=== PATIENT | female | born 1980 | race Caucasian/White ===

== ENCOUNTER → 2017-01-12 15:39 | Observation (INO) ==
[2017-01-12 13:14] LABS: Basophils % 0.1 %; Eosinophils % 0.4 %; Hematocrit 28.6 % (35.3-44.9); Hemoglobin 9.6 g/dL (11.5-15.4); Immature Granulocytes % 0.6 % (0-4); Lymphocytes # 1.6 K/mcL (0.6-4.6); Lymphocytes % 18.4 %; Mean Corpuscular HGB Conc 33.6 g/dL (31.6-35.5); Mean Corpuscular Hemoglobin 26.9 pg (28.0-33.3); Mean Corpuscular Volume 80.1 fL (83.0-100.0); Mean Platelet Volume 9.3 fL (9.4-12.4); Monocytes # 0.4 K/mcL (0.0-1.3); Monocytes % 5.2 %; Neutrophils # 6.4 K/mcL (1.6-8.9); Platelet Count 278 K/mcL (140-400); Red Blood Count 3.57 M/mcL (3.82-4.97); Red Cell Distribution Width 13.7 % (11.5-14.5); Segmented Neutrophils % 75.3 %
[2017-01-12 13:26] LABS: Alanine Aminotransferase 9 Units/L (0-55); Aspartate Amino Transferase 10 Units/L (5-34); BUN/Creatinine Ratio 9 (6-26); Lactate Dehydrogenase 126 Units/L (159-327); Uric Acid 4.5 mg/dL (2.6-6.0); eGFR For African Americans > 60 (> 60); eGFR For Non-African Americans > 60 (> 60)
[2017-01-12 13:27] LABS: Blood Urea Nitrogen 5 mg/dL (7-20)
--- NOTE | 2017-01-12 15:03 | Discharge Summary ---
Date of Encounter: 01/12/17 Time of Encounter: 15:03 - Discharge Diagnosis (1) Chronic hypertension affecting Priority: Primary Status: Acute Comments: Patient reports good movement and denies vaginal bleeding or leaking of fluid or contractions. Patient also denies headache, blurred vision, visual changes and epigastric pain Patient's blood pressures while inpatient have been in the 140s/80s to 90s, all PIH labs negative. Discussed patient with Dr. Hoover. Plan of care to discharged home on current antihypertensive medication regimen, give betamethasone for risk of delivery due to chronic hypertension. First dose of betamethasone given today, appointment scheduled by labor and delivery nurses for second and final dose of betamethasone to be given tomorrow in the office. Discussed treatment plan with patient and patient in agreement with discharged discussed when to call provider and return to triage. Patient verbalizes understanding (2) 33 weeks gestation of Priority: Primary Status: Acute - Discharge Medications Home Medications: Labetalol [Trandate] 200 mg PO TID 01/12/17 [History] Methyldopa 750 mg PO TID 01/12/17 [History] Multi Tablet 1 PO DAILY 01/12/17 [History] Allergies/Adverse Reactions: Allergies codeine Adverse Reaction (Verified 01/12/17 13:30) Vomiting Data Procedures and tests throughout hospitalization: Laboratory Tests 01/12/17 01/12/17 12:50 12:50 WBC 8.4 RBC 3.57 L Hgb 9.6 L Hct 28.6 L MCV 80.1 L MCH 26.9 L MCHC 33.6 RDW 13.7 Plt Count 278 MPV 9.3 L Immature Gran % 0.6 Seg Neutrophils % 75.3 Lymphocytes % 18.4 Monocytes % 5.2 Eosinophils % 0.4 Basophils % 0.1 Neutrophils # 6.4 Lymphocytes # 1.6 Monocytes # 0.4 Eosinophils # 0.0 Basophils # 0.0 BUN 5 L Creatinine 0.57 Est GFR ( Amer) > 60 Est GFR (Non-Af Amer) > 60 BUN/Creatinine Ratio 9 Uric Acid 4.5 AST 10 ALT 9 Lactate Dehydrogenase 126 L Labs on day of discharge: Labs from last 24 hours 01/12/17 01/12/17 12:50 12:50 WBC 8.4 RBC 3.57 L Hgb 9.6 L Hct 28.6 L MCV 80.1 L MCH 26.9 L MCHC 33.6 RDW 13.7 Plt Count 278 MPV 9.3 L Immature Gran % 0.6 Seg Neutrophils % 75.3 Lymphocytes % 18.4 Monocytes % 5.2 Eosinophils % 0.4 Basophils % 0.1 Neutrophils # 6.4 Lymphocytes # 1.6 Monocytes # 0.4 Eosinophils # 0.0 Basophils # 0.0 BUN 5 L Creatinine 0.57 Est GFR ( Amer) > 60 Est GFR (Non-Af Amer) > 60 BUN/Creatinine Ratio 9 Uric Acid 4.5 AST 10 ALT 9 Lactate Dehydrogenase 126 L Date of admission: 01/12/17 12:33 Primary care physician: Yumiko Mane CNP Discharging clinician: Leah Ashford Anticipated date of discharge: 01/12/17 - Patient Status Disposition: Home, Self-Care Condition: Good Functional capacity at discharge: independent ambulation Overall status at discharge: patient is back to baseline - Discharge Instructions Instructions: Chronic Hypertension (DC) Follow Up With: Yumiko Mane CNP [Primary Care Provider] - Mustapha Gilliam MD [Partnered Physician] - Forms: Work/School Release Additional Instructions: LABOR AND DELIVERY DISCHARGE INSTRUCTIONS Signs and Symptoms to be Reported to your Doctor Immediately: * Sudden gush, continuous or intermittent lead of fluid from vagina (note the time of gush and color of fluid) * Onset of bright red vaginal bleeding with or without pain (if you had a vaginal exam during this visit you may notice some dark red spotting. This is normal.) * Lower abdominal cramping or backache that is premenstrual-like feeling. * More than 6 contractions in one hour. * Burning during urination, having to urinate more frequently or pain in your mid-back. * A change in the baby's activity. This could be an increase or decrease in activity. * Severe headache which does not go away with tylenol. * Sudden swelling in the face, hands, arms and/or legs. * Upper abdominal pain - sometimes associated with heartburn or nausea and is not relieved by Maalox, Mylanta or Tums. * Dizziness or blurred vision or visual disturbances (seeing stars/lights). * Kick Counts One hour after a meal, lay down on one side in a quiet place. Count the number of lester the baby moves during an hour. If less than 6 movements, notify your physician. Diet: *Force fluids - 8-10 tall glasses of fluid per day. May include popsicles and jello. 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
[~2017-01-12 15:39] MED LIST: Betamethasone Acet/SodPhos 6 MG/ML MDV IM SCH
== END | disposition home or self-care (01) ==
LOC: 1NENULAB
PROVIDERS: ADMIT Obstetrics & Gynecology; ATTEND Obstetrics & Gynecology

== ENCOUNTER 2017-02-05 08:18 | Inpatient (IN) ==
[2017-02-05 02:11] LABS: Basophils % 0.2 %; Eosinophils # 0.1 K/mcL (0.0-0.6); Eosinophils % 0.7 %; Hematocrit 30.3 % (35.3-44.9); Hemoglobin 9.9 g/dL (11.5-15.4); Immature Granulocytes % 0.5 % (0-4); Immature Platelets 2.3 % (1.1-6.1); Lymphocytes # 2.1 K/mcL (0.6-4.6); Lymphocytes % 24.4 %; Mean Corpuscular HGB Conc 32.7 g/dL (31.6-35.5); Mean Corpuscular Hemoglobin 25.7 pg (28.0-33.3); Mean Corpuscular Volume 78.7 fL (83.0-100.0); Mean Platelet Volume 9.6 fL (9.4-12.4); Monocytes # 0.5 K/mcL (0.0-1.3); Monocytes % 5.8 %; Neutrophils # 5.9 K/mcL (1.6-8.9); Platelet Count 305 K/mcL (140-400); Red Blood Count 3.85 M/mcL (3.82-4.97); Red Cell Distribution Width 13.6 % (11.5-14.5); Segmented Neutrophils % 68.4 %
[2017-02-05 02:21] LABS: Bilirubin,Urine Negative (Negative); Blood,Urine Negative (Negative); Clarity,Urine Cloudy (Clear); Color,Urine Yellow (Yellow); Glucose,Urine (UA) Normal (Normal); Ketones,Urine Trace mg/dL (Negative); Leukocyte Esterase,Urine Negative (Negative); Nitrite,Urine Negative (Negative); PH,Urine 6.5 pH Units (5.0-8.0); Protein,Urine Negative (Neg-Trace); Specific Gravity,Urine 1.012 (1.010-1.025); Urobilinogen,Urine Normal (Normal)
[2017-02-05 02:24] LABS: Alanine Aminotransferase 11 Units/L (0-55); Aspartate Amino Transferase 11 Units/L (5-34); BUN/Creatinine Ratio 10 (6-26); Blood Urea Nitrogen 6 mg/dL (7-20); Lactate Dehydrogenase 132 Units/L (159-327); Uric Acid 4.8 mg/dL (2.6-6.0); eGFR For African Americans > 60 (> 60); eGFR For Non-African Americans > 60 (> 60)
[2017-02-05 02:24] LABS: Bacteria,Urine Few per hpf (None-Few); Hyaline Casts,Urine None Seen per lpf (None-Few); RBC,Urine 0-3 per hpf (0-3); Squamous Epithelial Cell,Urine Many per lpf (None-Few)
[2017-02-05 02:30] LABS: Protein/Creatinine Ratio,Urine 0.15 mg/mg (0-0.20)
[~2017-02-05 08:18] MED LIST changes: +*HR* Labetalol 20 MG/4 ML SYRINGE IVP ONE; -Betamethasone Acet/SodPhos 6 MG/ML MDV IM SCH; +Famotidine 20 MG/2 ML VIAL IVP PRN; +Naloxone 0.4 MG/ML INJ IVP PRN; +miSOPROStol 25 MCG TABLET VG PRN
--- NOTE | 2017-02-05 08:20 | OB/GYN History & Physical ---
Date of Encounter: 02/05/17 Time of Encounter: 08:16 Assessment and Plan (1) Chronic hypertension affecting Current visit: No Status: Acute Given the fact that we are treating her BP with multiple doses of IV labetalol and it is still high, we will begin IOL, I will be calling her CHTN with superimposed preeclampsia based on the sudden increase in her BP requiring escalation of meds for treatment, We will begin Magnesium for seizure ppx, cytotec 25mcg will be given for cervial ripening, Cont monitoring strip History of Present Illness HPI: Ms. Rangel is a 36 year old female @ 36 weeks who presented to and D with elevated BP at home in the 160's/90-100's. She has CHTN and is currently on Methyldopa and Labetalol 600mg daily. Her pressures have been controlled for the most part until recently. On and D, she had pressures from 140's to as high as 200 systolic requiring IV labetalol 20mg and 40 mg IV. She does not report symptoms of toxemia such as PERES, SOB, RUQ pain, nausea etc, she does not report LOF, VB or ctxs, feels good FM. Except for a variable decel when she arrived and , her tracing has been CAT 1. Past Med Surg Social Fam HX - Past Medical History Medical history: hypertension, migraine Psychiatric history: no psych history - Past Surgical History Surgical History: no surgical history - Social History Smoking Status: Former smoker Smokeless Tobacco Status: No Alcohol use: none Drug use: none - Family History Mother Adopted: No Living Status: Still Living Hx Family Cardiac Disorders: Yes (HTN) Hx Family Respiratory Disorders: No Hx Family Cancer: No Hx Family GI Disorders: No Hx Family Endocrine Disorder: No Hx Family Neuromuscular Disorders: No Hx Family Neurologic Disorders: No Hx Family HEENT Disorders: No Hx Family Autoimmune Disorders: No Obstetrical History - Pregnancies : 2 Para: 1 Medications and Allergies Labetalol [Trandate] 200 mg PO TID 01/12/17 [History] Methyldopa 750 mg PO TID 01/12/17 [History] Multi Tablet 1 PO DAILY 01/12/17 [History] Allergies codeine Adverse Reaction (Verified 02/05/17 02:30) Vomiting Review of System OB All systems PM: reviewed and no additional remarkable complaints except as stated Exam - Constitutional Constitutional: well nourished - HEENT HEENT: Normocephaly - Neck Neck exam: full ROM - Lungs Respiratory exam: CTAB - Cardiovascular Cardiovascular exam: RRR - Abdomen Abdomen: Present: gravid - Extremities Extremities exam: normal inspection - Cervix Dilation: 0 Results Result Diagrams: 02/05/17 02:00 02/05/17 02:00 Abnormal lab results Hgb 9.9 g/dL (11.5-15.4) L 02/05/17 02:00 Hct 30.3 % (35.3-44.9) L 02/05/17 02:00 MCV 78.7 fL (83.0-100.0) L 02/05/17 02:00 MCH 25.7 pg (28.0-33.3) L 02/05/17 02:00 BUN 6 mg/dL (7-20) L 02/05/17 02:00 Lactate Dehydrogenase 132 Units/L (159-327) L 02/05/17 02:00 Urine Clarity Cloudy (Clear) A 02/05/17 02:15 Urine Ketones Trace mg/dL (Negative) H 02/05/17 02:15 Urine Microscopic WBC 3-5 per hpf (0-3) H 02/05/17 02:15 Ur Squamous Epith Cells Many per lpf (None-Few) H 02/05/17 02:15 All other labs normal.
[2017-02-05] MEDS ORDERED: Oxytocin 20 units/ LR 1000 mL 20 UNIT/1,000 ML BAG IVC SCH ×2 (08:30→21:00)
[2017-02-05] MEDS: *HR* Labetalol 20 MG/4 ML SYRINGE IVP ONE ×2 (08:30→08:37)
[2017-02-05] MEDS ORDERED: Calcium Gluconate 1,000 MG/10 ML VIAL IVPB ONE (08:33)
[2017-02-05] MEDS: Magnesium Sulfate 20 gm/500mL 20 GM/500 ML IV.SOLN IVC SCH ×2 (08:39→18:29)
[2017-02-05] MEDS: Ringers Solution, Lactated 1,000 ML IVC SCH ×2 (08:40→20:59)
[2017-02-05] MEDS ORDERED: Penicillin G Potassium 5,000,000 UNIT in D5% in Water (Mini-Bag+) 100 ML IVPB ONE (09:55)
[2017-02-05] MEDS ORDERED: *HR* Labetalol 20 MG/4 ML SYRINGE IVP STA ×2 (11:24→12:00)
[2017-02-05] MEDS ORDERED: *HR* Labetalol 20 MG/4 ML SYRINGE IVP ONE (11:24)
--- NOTE | 2017-02-05 11:27 | Anesthesia Evaluation PreOp ---
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 Significant HX Other Medical History: Denies Any Significant HX Anesthesia History: No Prior Anesthetic Complications, Past Anesthesia (wisdom teeth) : Yes (, 36 plus 2) Alcohol Use: none Drug use: none Medications and Allergies Labetalol [Trandate] 200 mg PO TID 01/12/17 [History] Methyldopa 750 mg PO TID 01/12/17 [History] Multi Tablet 1 PO DAILY 01/12/17 [History] Allergies codeine Adverse Reaction (Verified 02/05/17 02:30) Vomiting - Meds/Allergy Pre-op Review Medications Reviewed: Yes Allergies Reviewed: Yes Beta Blockers on Current Med List: Yes (ATC) Anesthesia Results - Labs 02/05/17 02:00 02/05/17 02:00 Anesthesia Exam O2 Sat Height 1.57 m Weight 99.9 kg BP 182/80 hr 84 Height: 62 Weight: 99 - HEENT Pupil (Motor): Pupils equal Mallampati: II Teeth: Normal Oral Opening: Less than or equal to 3 - SHUTTLE TRUCK DRIVER LOC: Oriented SHUTTLE TRUCK DRIVER Motor: Normal RUE, Normal LUE, Normal RLE, Normal LLE, Normal Face SHUTTLE TRUCK DRIVER Sensory: Normal: RUE, LUE, RLE, LLE, Face - Cardiac Rhythm: Regular Murmur: None JVD: No Carotid Bruit: No - Pulmonary Breath Sounds: bilateral Clear Respiratory Effort: Symmetrical Anesthesia Assess/Plan ASA Score: 2 Modified Ole Scale for Level of Consciousness: Cooperative, oriented, and tranquil Anesthetic Plan: Regional Monitoring Plan: Standard Monitors Recovery Plan: PACU
--- NOTE | 2017-02-05 11:28 | OB Labor Progress Note ---
Date of Encounter: 02/05/17 Time of Encounter: 11:24 Labor Progress Note - Subjective Subjective: called by RN for increasing blood pressures. Now 3 hours since last dose of IV labetalol. Patient is getting somewhat uncomfortable with the contractions. - Vital Signs Vital Signs: 183/94 repeated 10 minutes later and near the same reading - Heart Tones Heart Tones: category 1 with baseline 130 - Galion Galion: q 2-3 minutes, received PV cytotec at 0900 - Interventions Interventions: 20 mg IV labetolol ordered to be given now. If patient uncomfortable, consider epidural for pain control which may help with the blood pressures.
[2017-02-05] MEDS ORDERED: Epidural Premix (fent/bupiv) 110 ML EP ONE ×2 (11:44→18:44)
[2017-02-05] MEDS ORDERED: *HR* FentaNYL (PF) 100 MCG/2 ML VIAL ONE (11:45)
[2017-02-05] MEDS ORDERED: *HR* Ropivacaine/PF 0.2% 10 ML AMPUL ONE ×2 (11:45→17:12)
[2017-02-05] MEDS ORDERED: Penicillin G Potassium 2,500,000 UNIT in D5% in Water 100 ML IVPB SCH (12:00)
[2017-02-05] MEDS ORDERED: *HR* Promethazine 25 MG/ML VIAL ONE (12:57)
--- NOTE | 2017-02-05 13:05 | OB Labor Progress Note ---
Date of Encounter: 02/05/17 Time of Encounter: 13:02 Labor Progress Note - Subjective Subjective: Patient is comfortable after the epidural - Vital Signs Vital Signs: 126/70 BP currently - Cervix Cervix: 1/thick/-3 - Heart Tones Heart Tones: 125 with accels category 1 - Russian Mission Russian Mission: q 2-3 minutes - Plan Plan: Begin pitocin. First dose of cytotec started contractions, but she has not made any cervical change.
[2017-02-05] MEDS: *HR* Promethazine 25 MG/ML VIAL IVP PRN ×2 (13:07→18:24)
[2017-02-05] MEDS ORDERED: Oxytocin 20 units/ LR 1000 mL 20 UNIT/1,000 ML BAG IVC ONE (21:00)
--- NOTE | 2017-02-05 21:03 | OB/GYN Procedure Note ---
Delivery - Delivery Date: 02/05/17 Provider: Dayana Haro Intrapartum events: none Delivery induction: oxytocin, misoprostol Delivery monitor: external FHT, external uterine Anesthesia: epidural Estimated Blood Loss: 300 - (s) A Delivery Date: 02/05/17 Delivery Time: 20:19 Presentation: vertex Position: EDILBERTO Route of delivery: Gender: Female Viability: Viable Pounds: 5 Ounces: 14 Weight Gram: 2.655 kg at 1 minute: 8 at 5 mins: 9 Shoulder Dystocia: not encountered Placenta: spontaneous Cord: 3 umbilical vessels - Repair Episiotomy: none Laceration Description: Perineal - 2nd Degree, Labial (right) - Complications Delivery complications: none Delivery comments: Called to room with patient complete and +2 station. Under maternal effort she delivered a viable female weighing 5 lb 14 oz and Apgars 8 and 9 at one and 5 minutes respectively over a second-degree perineal laceration. Following delivery of the head was bulb suctioned. There is no nuchal cord or shoulder dystocia encountered. The infant delivered with maternal expulsive efforts and was placed on mom's abdomen. Cord was clamped and cut. A segment of cord was obtained for cord stat. Placenta delivered spontaneously, complete, and intact with three-vessel cord. Right labial laceration was repaired using 3-0 Monocryl in an interrupted fashion to obtain hemostasis. Second-degree perineal laceration was repaired using 3-0 Vicryl in standard fashion. Sponge and needle counts are correct at the end of the procedure. Mother and are recovering in the LDR in stable condition. - Disposition Mom disposition: stable in LDR Bee disposition: stable in LDR
[2017-02-05] MEDS ORDERED: *HR* Oxytocin 10 UNIT/ML VIAL IM ONE ×2 (21:09→21:15)
[2017-02-06] MEDS: Magnesium Sulfate 20 gm/500mL 20 GM/500 ML IV.SOLN IVC SCH ×2 (04:22→14:27)
[2017-02-06] MEDS: Acetaminophen 325 MG TABLET PO PRN ×2 (04:28→15:47)
--- NOTE | 2017-02-06 08:20 | OB/GYN Progress Note ---
Date of Encounter: 02/06/17 Time of Encounter: 08:17 - Assessment and Plan (1) Status post vaginal delivery Current Visit: Yes Status: Acute (2) Chronic hypertension affecting Current Visit: No Status: Acute Continue magnesium for 24 hours post-delivery Restart oral antihypertensives Subjective - Subjective Principal diagnosis: Status post vaginal delivery Interval history: Patient with vaginal delivery last night at 2019. To complete 24 hours of magnesium postdelivery. Bed rest during magnesium drip. Patient reports: other (Magnesium drip, bed rest, Mendoza catheter, nothing by mouth for 2 days) : in NICU Objective - Latest Vital Signs Latest vital signs: Vital Signs Temp Pulse Resp BP Pulse Ox 02/06/17 07:15 97.8 F 81 16 142/94 97 02/06/17 05:15 97.7 F 87 16 130/84 97 02/06/17 04:16 90 16 136/92 02/06/17 03:15 98.1 F 92 14 129/86 97 02/06/17 02:15 89 20 127/83 02/06/17 01:15 98.1 F 93 16 127/85 98 02/06/17 00:19 98.5 F 97 02/06/17 00:15 20 02/06/17 00:13 92 20 139/91 02/05/17 23:15 98.3 F 93 16 133/89 96 Intake and Output 02/05/17 02/06/17 02/06/17 23:59 07:59 15:59 Intake Total 1500 / 1500 Output Total 1235 / 1235 1125 / 1125 Balance 265 / 265 -1125 / -1125 Intake: IV Fluids 1500 / 1500 Pitocin 20 unit In 1,000 500 / 500 ml @ Per Protocol IVC . Q0M [facility] Rx#:[id number] Lactated Ringers 1,000 ML 1000 / 1000 @ 125 mls/hr IVC .Q8H [facility] Rx#:[id number] Output: Urine 50 / 50 1025 / 1025 Estimated Blood Loss 300 / 300 Catheter 885 / 885 100 / 100 Other: Weight 95.8 kg - Exam Lungs: bilateral: normal Chest: Normal S1, Normal S2 Extremities: Present: normal Abdomen: Present: soft Uterus: Present: normal Uterus Position: At Umbilicus - Attending Attestation I examined this patient and my medical decision-making was reviewed with the MUD ANALYSIS WELL LOGGING OPERATOR/PA/Advanced Practice Nurse/Resident Physician. I agree with the documented findings, disposition and treatment plan as described except to the extent set forth below.
[2017-02-06] MEDS: Prenatal Vit/FA 1 EACH TABLET PO SCH (08:38)
[2017-02-06] MEDS: hydroCHLOROthiazide 25 MG TABLET PO SCH (08:39)
[2017-02-07] MEDS: Prenatal Vit/FA 1 EACH TABLET PO SCH (08:12)
[2017-02-07] MEDS: hydroCHLOROthiazide 25 MG TABLET PO SCH (08:12)
--- NOTE | 2017-02-07 09:41 | OB/GYN Progress Note ---
Date of Encounter: 02/07/17 Time of Encounter: 09:39 - Assessment and Plan (1) Status post vaginal delivery Current Visit: Yes Status: Acute Doing well without c/o. (2) Chronic hypertension affecting Current Visit: No Status: Acute BP's labile, I think anxiety is contributing to hypertension. Will cont. antihypertensives. Subjective - Subjective Principal diagnosis: s/p . chronic hypertension Interval history: Doing well without s/sx's of preeclampsia. Pt is nervous about how baby is doing. Appropriate lochia and cramping. Patient reports: appetite normal : bottle feeding Objective - Latest Vital Signs Latest vital signs: Vital Signs Temp Pulse Pulse Resp BP Pulse Ox 02/07/17 07:45 98.6 F 86 12 159/106 98 02/07/17 06:00 85 157/105 02/07/17 04:46 98.4 F 87 87 16 146/110 98 02/07/17 00:25 98.6 F 86 86 15 140/91 98 02/06/17 19:16 98.5 F 89 89 14 142/95 98 02/06/17 19:15 98.9 F 90 90 14 140/91 96 02/06/17 18:15 98.1 F 92 16 138/87 97 02/06/17 17:15 97.7 F 92 16 123/84 97 02/06/17 16:15 98.0 F 86 16 129/89 97 02/06/17 15:40 98.5 F 88 16 126/85 98 02/06/17 14:15 98.5 F 87 16 127/86 97 02/06/17 13:20 98.3 F 89 16 106/74 96 02/06/17 12:20 98.0 F 89 16 106/74 97 02/06/17 11:20 85 16 114/80 02/06/17 10:15 98.4 F 85 16 113/77 97 Intake and Output 02/06/17 02/07/17 02/07/17 23:59 07:59 15:59 Intake Total 390 / 390 240 / 240 Output Total 2175 / 2175 550 / 550 Balance -1785 / -1785 -310 / -310 Intake: Oral 240 / 240 240 / 240 Other 150 / 150 Output: Urine 1500 / 1500 550 / 550 Catheter 675 / 675 Other: Meal Dinner Breakfast Percent of Meal Consumed 100% 100% Stool Size Small Stool Characteristics Normal for Patient Weight 93.213 kg Patient Weight 02/07/17 23:59 Weight 93.213 kg - Exam Lungs: bilateral: normal Chest: Normal S1, Normal S2 Extremities: Present: normal Abdomen: Present: soft Uterus Position: 2 Fingers Above Umbilicus
[2017-02-07] MEDS: Acetaminophen 325 MG TABLET PO PRN ×2 (13:13→22:04)
[2017-02-07] MEDS ORDERED: hydrALAZINE 10 MG TABLET PO PRN (21:26)
--- NOTE | 2017-02-07 21:36 | Internal Medicine Consult Note ---
Date of Encounter: 02/08/17 Time of Encounter: 21:27 - Assessment and Plan (1) Hypertension Current Visit: Yes Status: Acute Assessment and plan: Patient with chronic hypertension. Prior to , she took Labetalol 100mg BID, losartan 50mg daily, HCTZ 25mg Daily. During her , she was on Methyldopa 750mg TID and labetalol 200mg TID. She has had two doses of Labetalol 200mg today as well as two doses of 50mg losartan today as well as her HCTZ. Her blood pressure continues to be elevated, most recently 163/114. She is anxious about her baby as well as her blood pressure and reports she hasn't slept much, all which is likely contributing to her elevated blood pressure. She will get 1 more dose of labetalol tonight. Recheck blood pressure 1 hour after medication dosing. Hydralazine 10mg PO ordered PRN for blood pressure > 160/100. Qualifiers: Hypertension type: essential hypertension Qualified Code(s): I10 - Essential (primary) hypertension (2) Status post vaginal delivery Current Visit: Yes Status: Acute Assessment and plan: Care per primary team. Internal Medicine - CN: HPI - Data of Consult Patient: new to practice Requesting Physician: Les San MD - Consult Narrative Reason for consult: Hypertension History of present illness: Ms. Rangel is a 36 year old female with history of hypertension and who is s/p vaginal delivery on 02/05, with uncontrolled hypertension. We were asked to consult on patient as she has restarted her home blood pressure medications and is still having high blood pressures with most recent being 163/114. She was induced at 36 weeks due to increasing hypertension and concern for pre- ecclampsia. She was given a magnesium drip for 24 hours along with her home dose of labetalol and her blood pressures were relatively controlled. She came off the magnesium drip this morning at 8am and was restarted on HCTZ and losartan, in addition to the labetalol and her blood pressures have still been running high. She reports a mild headache, reports she has not had much sleep and is anxious about her baby as well as her blood pressure. She denies any chest pain, palpitations, shortness of breath, numbness or tingling. On exam, heart has regular rate and rhythm, lungs are clear bilaterally to auscultation. Past Med Surg Social Fam HX - Past Medical History Medical history: hypertension, migraine Psychiatric history: no psych history - Past Surgical History Surgical History: no surgical history - Social History Smoking Status: Former smoker Smokeless Tobacco Status: No Alcohol use: none Drug use: none - Family History Mother Adopted: No Living Status: Still Living Hx Family Cardiac Disorders: Yes (HTN) Hx Family Respiratory Disorders: No Hx Family Cancer: No Hx Family GI Disorders: No Hx Family Endocrine Disorder: No Hx Family Neuromuscular Disorders: No Hx Family Neurologic Disorders: No Hx Family HEENT Disorders: No Hx Family Autoimmune Disorders: No Maternal Grandfather Living Status: Hx Family Cardiac Disorders: Yes ([place]) - Constitutional Constitutional: no chills, no fever(s), no night sweats - EENT Eyes: no blurry vision, no change in vision Nose, mouth and throat: no nasal congestion, no neck pain - Cardiovascular Cardiovascular ROS IM: no chest pain, no diaphoresis, no dyspnea, no edema, no lightheadedness, no palpitations, no syncope - Respiratory Respiratory: no cough, no dyspnea, no dyspnea on exertion, no excessive phlegm production, no change in phlegm color - Gastrointestinal Gastrointestinal: no diarrhea, no nausea, no vomiting - Genitourinary Genitourinary: no dysuria - Neurological Neurological ROS: headache(s) (mild), no numbness, no tingling - Psychiatric Psychiatric: anxiety Internal Medicine - CN: Meds Labetalol [Trandate] 200 mg PO TID 01/12/17 [History] Methyldopa 750 mg PO TID 01/12/17 [History] Multi Tablet 1 PO DAILY 01/12/17 [History] Allergies codeine Adverse Reaction (Verified 02/05/17 02:30) Vomiting Internal Medicine - CN: Exam - Constitutional Vitals: Temp Pulse Resp BP Pulse Ox 98.5 F 87 12 156/108 98 02/07/17 16:00 02/07/17 16:00 02/07/17 16:00 02/07/17 16:00 02/07/17 16:00 General appearance IM: Present: A&O X 3, pleasant, no acute distress - Head Head exam: Present: atraumatic, normocephalic - Eye Eye exam: Present: EOMI, PERRL, conjuntiva pink, sclera anicteric - Neck Neck exam general surgery: Present: supple, trachea midline - Respiratory Respiratory exam: Present: CTAB. Absent: rales, rhonchi, wheezes - Cardiovascular Cardiovascular exam IM: Present: RRR, +S1, +S2. Absent: bradycardia, diastolic murmur, gallop, systolic murmur - GI/Abdominal GI/Abdominal exam IM: Present: distended, soft - Extremities Exam Extremities exam IM: Present: normal inspection, pedal edema (trace), warm, radial pulses palpable and symetrical. Absent: tenderness - Neurological Exam Neurological exam: Present: alert, CN II-XII intact, oriented X3, strengths equal and symetr throughout. Absent: facial droop, speech deficit - Psychiatric Psychiatric exam: Present: anxious - Skin Skin exam IM: Present: dry, intact Internal Medicine - CN: Reslt - Labs CBC & Chem 7: 02/05/17 02:00 02/05/17 02:00 Consult Discharge Plan - Plan Referrals: Yumiko Mane, DISEASE CASE MANAGER RN [Primary Care Provider] -
[2017-02-08] MEDS ORDERED: hydrALAZINE 25 MG TABLET PO ONE (02:42)
--- NOTE | 2017-02-08 09:06 | OB/GYN Progress Note ---
Date of Encounter: 02/08/17 Time of Encounter: 09:02 - Assessment and Plan (1) Status post vaginal delivery Current Visit: Yes Status: Acute Continue current PP care.CHTN management by medicine. (2) Chronic hypertension affecting Current Visit: No Status: Acute Subjective - Subjective Interval history: Pt states pain is well managed and tolerating a po diet. She states she is feeling very emotional today, crying frequently. Pt states she feel okay, except when blood pressure is elevated. Patient reports: appetite normal, voiding normally, pain well controlled, ambulating normally : in NICU Objective - Latest Vital Signs Latest vital signs: Vital Signs Temp Pulse Pulse Resp BP Pulse Ox 02/08/17 06:20 98.3 F 104 18 164/113 97 02/08/17 04:50 98.4 F 93 18 150/102 98 02/08/17 03:00 98.0 F 77 20 151/103 97 02/08/17 02:25 98.0 F 87 20 160/116 98 02/08/17 00:20 97.5 F L 73 20 155/106 98 02/07/17 23:05 78 20 02/07/17 23:00 97.5 F L 78 20 149/103 97 02/07/17 22:00 98.2 F 101 18 170/134 97 02/07/17 19:45 98.6 F 100 100 20 163/114 97 02/07/17 16:00 98.5 F 87 12 156/108 98 02/07/17 14:00 166/98 02/07/17 11:54 98.4 F 84 18 177/123 98 Intake and Output 02/07/17 02/08/17 02/08/17 23:59 07:59 15:59 Intake Total 1300 / 1300 600 / 600 Output Total 3500 / 3500 150 / 150 Balance -2200 / -2200 450 / 450 Intake: Oral 1300 / 1300 600 / 600 Output: Urine 2500 / 2500 Catheter 1000 / 1000 150 / 150 Other: Stool Size Moderate Moderate Stool Consistency formed Stool Characteristics Normal for Patient Normal for Patient # Bowel Movements 1 Weight 91.881 kg Patient Weight 02/08/17 23:59 Weight 91.881 kg - Exam Lungs: bilateral: normal Chest: Normal S1, Normal S2 (mummur) Extremities: Present: normal Abdomen: Present: normal appearance Uterus: Present: normal Uterus Position: At Umbilicus, Midline
[2017-02-08] MEDS: hydroCHLOROthiazide 25 MG TABLET PO SCH (09:24)
[2017-02-08] MEDS: Prenatal Vit/FA 1 EACH TABLET PO SCH (09:24)
[2017-02-08] MEDS: Acetaminophen 325 MG TABLET PO PRN ×3 (09:26→20:54)
[2017-02-08] MEDS ORDERED: hydroCHLOROthiazide 25 MG TABLET PO SCH (14:06)
--- NOTE | 2017-02-08 14:10 | Internal Med Progress Note ---
Date of Encounter: 02/08/17 Time of Encounter: 13:10 - Assessment and plan (1) Hypertension Current Visit: Yes Status: Chronic Assessment and plan: Uncontrolled hypertension after recent vaginal delivery 3 days ago. Patient reports appropriate blood pressure control in the outpatient setting prior to delivery. Labor had to be induced due to uncontrolled hypertension. She was noted to be on losartan, hydrochlorothiazide and labetalol prior to , which was changed to alpha methyldopa and labetalol during . Her systolic blood pressure currently is between 140 and 160 and diastolic blood pressure in low to high 100s. She is currently on 50 mg twice daily losartan, 25 mg daily hydrochlorothiazide, 200 mg every 8 hourly labetalol. Patient is currently not breast-feeding. She reports history of lower extremity edema with calcium channel blockers. Will increase hydrochlorothiazide to 50 mg daily and start scheduled hydralazine 25 mg every 8 hours. Echocardiogram reviewed, essentially normal with preserved ejection fraction, mild concentric left ventricular hypertrophy. Continue to monitor blood pressure closely. Telemetry monitoring. Patient was noted to be extremely anxious in the last 24-48 hours, which is currently improving and she firmly declines medications including benzodiazepines to help her with anxiety. Qualifiers: Hypertension type: essential hypertension Qualified Code(s): I10 - Essential (primary) hypertension (2) Status post vaginal delivery Current Visit: Yes Status: Acute Assessment and plan: care per primary team. - Subjective Interval history: Feels better; improving anxiety; reports throbbing retroorbital pain and neck pain associated with uncontrolled HTN episodes, but otherwise asymptomatic; denies nausea, emesis, chest pain, weakness; She had a vaginal delivery 3 days ago after induced labor for uncontrolled BP, and her baby is currently in NICU due to feeding difficulties and intractable vomiting; - Constitutional Vitals: Temp Pulse Resp BP Pulse Ox 98.0 F 92 16 148/101 97 02/08/17 11:10 02/08/17 11:10 02/08/17 11:10 02/08/17 11:12 02/08/17 11:10 General appearance: Present: A&O X 3, answers questions appropriately - Respiratory Respiratory exam: Present: CTAB. Absent: accessory muscle use, rales, rhonchi, wheezes - Cardiovascular Cardiovascular exam: Present: RRR, +S1, +S2. Absent: diastolic murmur, gallop, rubs, systolic murmur - GI/Abdominal GI/Abdominal exam: Present: normal bowel sounds, soft, no peritoneal signs. Absent: distended, tenderness - Extremities Exam Extremities exam: Present: full ROM, warm, radial pulses palpable and symetrical. Absent: calf tenderness, cyanotic, pedal edema - Neurological Exam Neurological exam: Present: CN II-XII intact, oriented X3, no focal deficits. Absent: pronater drift, facial droop, speech deficit Internal Medicine: Result - Labs CBC & Chem 7: 02/05/17 02:00 02/05/17 02:00 - VTE Documentation of Mechanical Device: Intermittent pneumatic compression device Consult Discharge Plan - Plan Referrals: Yumiko Mane, [employer] [Primary Care Provider] -
[2017-02-08] MEDS: hydrALAZINE 25 MG TABLET PO SCH ×2 (16:37→23:13)
[2017-02-08] MEDS: Ibuprofen 600 MG TABLET PO PRN (16:43)
[2017-02-09] MEDS: Ibuprofen 600 MG TABLET PO PRN (04:42)
[2017-02-09] MEDS: Acetaminophen 325 MG TABLET PO PRN (05:52)
[2017-02-09] MEDS: hydrALAZINE 25 MG TABLET PO SCH ×2 (08:40→10:29)
[2017-02-09] MEDS: Prenatal Vit/FA 1 EACH TABLET PO SCH (08:40)
--- NOTE | 2017-02-09 08:54 | Internal Med Progress Note ---
Date of Encounter: 02/09/17 Time of Encounter: 08:50 - Assessment and plan (1) Hypertension Current Visit: Yes Status: Chronic Assessment and plan: BP much better controlled with the current regimen, patient is otherwise asymptomatic; Echocardiogram with no acute abnormality; patient is medically stable for discharge at this time; findings and concerns addressed with patient and she verbalized understanding; encourage ambulation, low sodium diet, medication compliance as outpatient; she can follow up with her PCP for ongoing BP monitoring and her meds may be adjusted/discontinued based on her progress; she can be discharged on her current regimen- Losartan, HCTZ, Hydralazine, Labetalol; Qualifiers: Hypertension type: essential hypertension Qualified Code(s): I10 - Essential (primary) hypertension (2) Status post vaginal delivery Current Visit: Yes Status: Acute - Subjective Interval history: Appears much better today; resolved anxiety; does have intermittent headaches and sinus congestion, worse while lying down; BP has been better controlled; - Constitutional Vitals: Temp Pulse Resp BP Pulse Ox 98.0 F 112 16 129/83 96 02/09/17 04:16 02/09/17 04:21 02/09/17 04:16 02/09/17 05:50 02/09/17 04:16 General appearance: Present: A&O X 3, answers questions appropriately - Respiratory Respiratory exam: Present: CTAB. Absent: accessory muscle use, rales, rhonchi, wheezes - Cardiovascular Cardiovascular exam: Present: RRR, +S1, +S2. Absent: diastolic murmur, gallop, rubs, systolic murmur - GI/Abdominal GI/Abdominal exam: Present: normal bowel sounds, soft, no peritoneal signs. Absent: distended, tenderness - Extremities Exam Extremities exam: Present: full ROM, warm, radial pulses palpable and symetrical. Absent: calf tenderness, cyanotic, pedal edema Internal Medicine: Result - Labs CBC & Chem 7: 02/05/17 02:00 02/05/17 02:00 - VTE Documentation of Mechanical Device: Intermittent pneumatic compression device Consult Discharge Plan - Plan Referrals: Yumiko Mane CNP [Primary Care Provider] -
--- NOTE | 2017-02-09 09:27 | Discharge Summary ---
Date of Encounter: 02/09/17 Time of Encounter: 09:16 - Discharge Diagnosis (1) Status post vaginal delivery Priority: Secondary Status: Resolved (2) Chronic hypertension affecting Priority: Primary Status: Chronic (3) 36 weeks gestation of Priority: Secondary Status: Resolved (4) Pre-eclampsia superimposed on chronic hypertension, delivered Priority: Secondary Status: Resolved (5) Anemia affecting in third trimester Priority: Secondary Status: Acute - Discharge Medications Prescriptions: hydrALAZINE [HydrALAZINE] 25 mg PO Q8HR #60 tablet Ferrous Sulfate 325 mg PO DAILY #30 tablet hydroCHLOROthiazide [Hydrochlorothiazide] 50 mg PO DAILY #30 tablet Labetalol [Trandate] 200 mg PO Q8H #60 tablet Losartan [Cozaar] 50 mg PO BID #60 tablet Home Medications: Multi Tablet 1 PO DAILY 01/12/17 [History] Ferrous Sulfate 325 mg PO DAILY #30 tablet 02/09/17 [Rx] Labetalol [Trandate] 200 mg PO Q8H #60 tablet 02/09/17 [Rx] Losartan [Cozaar] 50 mg PO BID #60 tablet 02/09/17 [Rx] hydrALAZINE [HydrALAZINE] 25 mg PO Q8HR #60 tablet 02/09/17 [Rx] hydroCHLOROthiazide [Hydrochlorothiazide] 50 mg PO DAILY #30 tablet 02/09/17 [Rx ] Allergies/Adverse Reactions: Allergies codeine Adverse Reaction (Verified 02/05/17 02:30) Vomiting Data Procedures and tests throughout hospitalization: Laboratory Tests 02/05/17 02/05/17 02/05/17 02:00 02:00 02:15 WBC 8.6 RBC 3.85 Hgb 9.9 L Hct 30.3 L MCV 78.7 L MCH 25.7 L MCHC 32.7 RDW 13.6 Plt Count 305 MPV 9.6 Immature Gran % 0.5 Seg Neutrophils % 68.4 Lymphocytes % 24.4 Monocytes % 5.8 Eosinophils % 0.7 Basophils % 0.2 Neutrophils # 5.9 Lymphocytes # 2.1 Monocytes # 0.5 Eosinophils # 0.1 Basophils # 0.0 Immature Plt Fraction 2.3 BUN 6 L Creatinine 0.60 Est GFR ( Amer) > 60 Est GFR (Non-Af Amer) > 60 BUN/Creatinine Ratio 10 Uric Acid 4.8 AST 11 ALT 11 Lactate Dehydrogenase 132 L Urine Color Yellow Urine Clarity Cloudy A Urine pH 6.5 Ur Specific [place] 1.012 Urine Protein Negative Urine Glucose (UA) Normal Urine Ketones Trace H Urine Blood Negative Urine Nitrite Negative Urine Bilirubin Negative Urine Urobilinogen Normal Ur Leukocyte Esterase Negative Urine Microscopic RBC 0-3 Urine Microscopic WBC 3-5 H Ur Squamous Epith Cells Many H Urine Bacteria Few Hyaline Casts None Seen Ur Culture Indicated? NO Urine Creatinine Protein/Creatinin Ratio Urine Total Protein 02/05/17 02:15 WBC RBC Hgb Hct MCV MCH MCHC RDW Plt Count MPV Immature Gran % Seg Neutrophils % Lymphocytes % Monocytes % Eosinophils % Basophils % Neutrophils # Lymphocytes # Monocytes # Eosinophils # Basophils # Immature Plt Fraction BUN Creatinine Est GFR ( Amer) Est GFR (Non-Af Amer) BUN/Creatinine Ratio Uric Acid AST ALT Lactate Dehydrogenase Urine Color Urine Clarity Urine pH Ur Specific [place] Urine Protein Urine Glucose (UA) Urine Ketones Urine Blood Urine Nitrite Urine Bilirubin Urine Urobilinogen Ur Leukocyte Esterase Urine Microscopic RBC Urine Microscopic WBC Ur Squamous Epith Cells Urine Bacteria Hyaline Casts Ur Culture Indicated? Urine Creatinine 75 Protein/Creatinin Ratio 0.15 Urine Total Protein 11 Date of admission: 02/05/17 08:18 Primary care physician: Yumiko Mane CNP Discharging clinician: Joya Medina Anticipated date of discharge: 02/09/17 - Patient Status Disposition: Home, Self-Care Condition: Good Functional capacity at discharge: independent ambulation Overall status at discharge: patient is progressing back to baseline - Discharge Instructions Follow Up With: Yumiko Mane CNP [Primary Care Provider] - Additional Instructions: Follow up with PCP next week for blood pressure check. Follow up with Dr. Gilliam in 3 weeks for post visit - Diet and Activity Activity: increase activity as tolerated Diet: advance to your usual diet Hospital Course Reason for admission: induction of labor Delivery: Episiotomy: none Laceration: 2nd degree Other procedures: none complications: other (hypertension. Hospitalist consult and involvement) Discharge diagnosis: delivery [place] baby: female Time Attestation: Total time spent providing and/or coordinating discharge services: Time Spent: Less than 30 minutes Exam - Constitutional Vitals: Temp Pulse Resp BP Pulse Ox 98.0 F 112 16 129/83 96 02/09/17 04:16 02/09/17 04:21 02/09/17 08:58 02/09/17 05:50 02/09/17 04:16 General appearance IM: A&O X 3, no acute distress - Respiratory Respiratory exam: Absent: respiratory distress - Uterine Tone: Firm Uterus Position: 2 Fingers Below Umbilicus - Extremities Exam Extremities exam IM: Absent: calf tenderness
[2017-02-09 10:40] VITALS: BP 136/94
== END 2017-02-09 11:00 | disposition home or self-care (01) | DRG 774 ==
LOC: 1NENULAB → 1NENUOBS 02-06 00:32
PROVIDERS: ADMIT Student in an Organized Health Care Education/Training Program; ATTEND Student in an Organized Health Care Education/Training Program